=== PATIENT | male | born 1955 | race Caucasian/White ===

== ENCOUNTER 2022-04-06 11:11 | Emergency (ER) | payer BC ==
[~2022-04-06] VITALS: Ht 177.8 cm; Wt 88.6 kg
[2022-04-06 11:29] VITALS: BP 129/81
[2022-04-06 11:30] LABS: BASOPHILS # (AUTO) 0.1 X10'3 (0-0.2); EOSINOPHILS % (AUTO) 0.8 % (0-6); HEMATOCRIT 44.5 % (42.0-52.0); HEMOGLOBIN 15.3 g/dl (14.0-17.9); LYMPHOCYTES # (AUTO) 1.6 X10'3 (1.1-4.8); LYMPHOCYTES % (AUTO) 26.8 % (21-51); MEAN CORPUSCULAR HEMOGLOBIN 31.4 PG (27.0-31.0); MEAN CORPUSCULAR HGB CONC 34.4 g/dL (33.0-36.5); MEAN CORPUSCULAR VOLUME 91.2 FL (78-98); MEAN PLATELET VOLUME 9.7 FL (7.4-10.4); MONOCYTES # (AUTO) 0.5 X10'3 (0-0.9); MONOCYTES % (AUTO) 9.4 % (2-12); NEUTROPHILS # (AUTO) 3.6 X10'3 (1.8-7.7); PLATELET COUNT 189 X10'3 (140-440); RED BLOOD COUNT 4.88 X10'6 (4.70-6.10); WHITE BLOOD COUNT 5.9 X10'3 (4.5-11.0)
[2022-04-06 11:51] LABS: ALANINE AMINOTRANSFERASE 30 U/L (12-78); ALBUMIN 3.2 G/DL (3.4-5.0); ALBUMIN/GLOBULIN RATIO 0.8 (1.1-1.5); ALKALINE PHOSPHATASE 57 IU/L (46-116); ANION GAP 12 (8-16); ASPARTATE AMINO TRANSFERASE 43 U/L (10-37); BILIRUBIN,TOTAL 0.6 MG/DL (0.1-1.0); BLOOD UREA NITROGEN 17 MG/DL (7-18); BUN/CREATININE RATIO 12.6 (5.4-32.0); CALCIUM 8.2 MG/DL (8.5-10.1); CHLORIDE 101 MMOL/L (99-107); CREATININE 1.35 MG/DL (0.60-1.10); GLUCOSE 94 MG/DL (70-104); POTASSIUM 3.3 MMOL/L (3.5-5.1); SODIUM 138 MMOL/L (135-145); TOTAL PROTEIN 7.2 G/DL (6.4-8.2); eGFR 53 ML/MIN
[2022-04-06] MEDS ORDERED: normal saline 1000ML IV soln IV ONE (13:40)
[2022-04-06] MEDS ORDERED: acetaminophen 325mg tablet PO ONE (13:50)
[2022-04-06] MEDS ORDERED: ketorolac trometh. 30mg/ml inj. IV ONE (13:50)
[2022-04-06] MEDS ORDERED: methylPREDNISolone sod succ 125mg/2ml vial IV ONE (13:50)
[2022-04-06] MEDS ORDERED: ipratropium/albuterol 3ml nebule NEB ONE (13:50)
--- NOTE | 2022-04-06 14:30 | NUR ---
PT GIVEN SOLUMEDROL AND TRAMADOL IV, VOMITED SHORTLY AFTER MEDS ADMINSTERED
[2022-04-06] MEDS ORDERED: PRED20TA PO (15:20)
[2022-04-06] MEDS ORDERED: ALBU6.7H14 INH (15:20)
[2022-04-06] MEDS ORDERED: GUAI-422 PO (15:20)
[2022-04-06] MEDS ORDERED: ONDA4TAB12 PO (15:20)
== END 2022-04-06 15:36 | disposition home or self-care (01) ==
LOC: ER 11:12
DX: J10.1 Influenza due to other identified influenza virus with other respiratory manifestations (principal); Z20.822 Contact with and (suspected) exposure to COVID-19; E86.0 Dehydration; E87.20 Acidosis, unspecified
CPT/HCPCS: 36415; 71046; 80053; 83605; 83735; 83880; 84484; 85025; 87040; 87502; 87503; 87635; 94640; 96361; 96374; 96375; 99285; C9803; J1885; J2930; J7030; 94760